=== PATIENT | male | born 1990 | race Two or more races ===

== ENCOUNTER 2021-07-05 02:34 | Emergency (ER) | payer MEDICAID, OTHER ==
[~2021-07-05] VITALS: Ht 170.2 cm; Wt 68.0 kg
== END 2021-07-05 03:05 | disposition left against medical advice (07) ==
LOC: ER 02:34
DX: S01.80XA Unspecified open wound of other part of head, initial encounter (principal); Z53.21 Procedure and treatment not carried out due to patient leaving prior to being seen by health care provider; V48.9XXA Unspecified car occupant injured in noncollision transport accident in traffic accident, initial encounter; Y93.89 Activity, other specified; Y92.89 Other specified places as the place of occurrence of the external cause; Y99.8 Other external cause status